=== PATIENT | male | born 1980 | race Caucasian/White ===

== ENCOUNTER 2018-04-10 15:30 | Emergency (ER) | payer BC, OTHER ==
[2018-04-10 15:43] VITALS: BP 114/50
[2018-04-10] MEDS ORDERED: Diphtheria,Pertussis(Acell),Tetanus Vaccine 0.5 ML Syringe IM ONE (16:16)
--- NOTE | 2018-04-10 16:30 | EDM.PDOC ---
ED HPI GENERAL MEDICAL PROBLEM - General Chief Complaint: Upper Extremity Injury/Pain Stated Complaint: CUT FINGER Time Seen by Provider: 04/10/18 15:32 Source of Information: Reports: Patient History Limitations: Reports: No Limitations - History of Present Illness INITIAL COMMENTS - FREE TEXT/NARRATIVE: Patient was building planter boxes out of recycled wood using a sawsall. He cut his left index finger when the blade caught then slipped. It is a linear laceration. His did clean it and dress it. He has no other complaints. Onset: Today, Sudden Quality: Reports: Sharp, Throbbing Severity: Mild Worsens with: Reports: Movement Associated Symptoms: Reports: No Other Symptoms - Related Data Allergies Allergy/AdvReac Type Severity Reaction Status Date / Time No Known Allergies Allergy Verified 04/10/18 15:45 Home Meds: Home Meds . [No Known Home Meds] 04/10/18 [History] Past Medical History - Past Health History Medical/Surgical History: Denies Medical/Surgical History Social & Family History - Tobacco Use Smoking Status *Q: Never Smoker Review of Systems - Review of Systems Review Of Systems: See Below Constitutional: Reports: No Symptoms Eyes: Reports: No Symptoms Ears: Reports: No Symptoms Nose: Reports: No Symptoms Mouth/Throat: Reports: No Symptoms Respiratory: Reports: No Symptoms Cardiovascular: Reports: No Symptoms GI/Abdominal: Reports: No Symptoms Genitourinary: Reports: No Symptoms Musculoskeletal: Reports: No Symptoms Skin: Reports: Wound (left index finger laceration) Neurological: Reports: No Symptoms Psychiatric: Reports: No Symptoms ED EXAM, GENERAL - Physical Exam Exam: See Below Exam Limited By: No Limitations General Appearance: Alert, WD/WN, No Apparent Distress Extremities: Normal Range of Motion, Non-Tender, No Pedal Edema, Normal Capillary Refill, Other (normal inspection with the exception of the laceration) Neurological: Alert, Oriented, CN II-XII Intact, Normal Cognition, Normal Gait, Normal Reflexes, No Motor/Sensory Deficits Skin Exam: Wound/Incision (2 cm laceration to index finger of left hand) ED TRAUMA EXTREMITY PROCEDURES - Laceration/Wound Repair Left Distal Finger Lac/Wound Length In cm: 2 (left index finger) Appearance: Linear, Clean Distal NVT: Neuro & Vascular Intact, No Tendon Injury Anesthetic Type: Local Local Anesthesia - Lidocaine (Xylocaine): 1% Plain Local Anesthetic Volume: 3cc Skin Prep: Chlorhexidine (Hibiciens) Exploration/Debridement/Repair: Wound Explored, In a Bloodless Field, No Foreign Material Found Closed With: Sutures Suture Size: 4-0 Suture Type: Running Tetanus Status Addressed: Yes Complications: No Course - Vital Signs Last Recorded V/S: Last Vital Signs Temp 36.7 C 04/10/18 15:35 Pulse 75 04/10/18 15:35 Resp 18 04/10/18 15:35 BP 114/50 L 04/10/18 15:35 Pulse Ox 95 04/10/18 15:35 - Orders/Labs/Meds Orders: Active Orders 24 hr Category Date Time Status Vaccines to be Administered [RC] PER UNIT ROUTINE Care 04/10/18 16:16 Active Meds: Medications Discontinued Medications Generic Name Dose Route Start Last Admin Trade Name Freq PRN Reason Stop Dose Admin Diphtheria/Tetanus/Acell Pertussis 0.5 ml 04/10/18 16:16 04/10/18 16:25 Adacel IM 04/10/18 16:17 0.5 ml .ONCE ONE Administration Lidocaine HCl 5 ml 04/10/18 15:54 04/10/18 16:10 Xylocaine-Mpf 1% INJECT 04/10/18 15:55 5 ml ONETIME ONE Administration Departure - Departure Time of Disposition: 16:20 Disposition: Home, Self-Care 01 Condition: Good Clinical Impression: Laceration of finger Qualifiers: Encounter type: initial encounter Finger: index finger Damage to nail status: without damage Foreign body presence: without foreign body Laterality: left Qualified Code(s): S61.211A - Laceration without foreign body of left index finger without damage to nail, initial encounter - Discharge Information Instructions: Laceration Care, Adult, Wound Infection, [id number], Wound Care , Adult Referrals: Maximus Connors MD [Primary Care Provider] - Forms: ED Department Discharge Additional Instructions: Remove sutures in 10-14 days. Keep the site covered for the first 24-48 hours. You may clean with soap and water. Cover the finger with a glove if you are going to be getting your hand dirty as you want to prevent infection. Please read the instructions I sent you on wound infection and laceration care. Follow up with your primary doctor as needed for additional symptom management. Please call us with any questions or concerns. - Problem List & Annotations (1) Laceration of finger SNOMED Code(s): 750370823 Code(s): S61.219A - LACERATION W/O FB OF UNSP FINGER W/O DAMAGE TO NAIL, INIT Status: Acute Qualifiers: Encounter type: initial encounter Finger: index finger Damage to nail status: without damage Foreign body presence: without foreign body Laterality: left Qualified Code(s): S61.211A - Laceration without foreign body of left index finger without damage to nail, initial encounter - Problem List Review Problem List Initiated/Reviewed/Updated: Yes - My Orders Last 24 Hours: My Active Orders 04/10/18 16:16 Vaccines to be Administered [RC] PER UNIT ROUTINE - Assessment/Plan Last 24 Hours: My Active Orders 04/10/18 16:16 Vaccines to be Administered [RC] PER UNIT ROUTINE Assessment:: laceration of left index finger Plan: Remove sutures in 10-14 days. Keep the site covered for the first 24-48 hours. You may clean with soap and water. Cover the finger with a glove if you are going to be getting your hand dirty as you want to prevent infection. Please read the instructions I sent you on wound infection and laceration care. Follow up with your primary doctor as needed for additional symptom management. Please call us with any questions or concerns.
== END 2018-04-10 16:32 | disposition home or self-care (01) ==
LOC: VM.ED 15:30
DX: S61.211A Laceration without foreign body of left index finger without damage to nail, initial encounter (principal); W26.8XXA Contact with other sharp object(s), not elsewhere classified, initial encounter; Z23 Encounter for immunization
CPT/HCPCS: 12001; 90471; 90715; 99283